=== PATIENT | male | born 1955 | race Caucasian/White ===

== ENCOUNTER 2023-01-24 08:46 | Outpatient (CLI) | payer BC ==
[2023-01-24 14:46] LABS: CHOL/HDL RATIO 4.4 (<5.0); CHOLESTEROL 193 mg/dL; HDL CHOLESTEROL 44 mg/dL; LDL CHOLESTEROL,CALCULATED 129 mg/dL; LDL/HDL RATIO 2.9 (<3.6); TRIGLYCERIDES 99 mg/dL (48-352); VLDL CHOLESTEROL 20 mg/dL
[2023-01-24 14:55] LABS: THYROID STIMULATING HORMONE 5.01 uIU/mL (0.34-5.60)
== END 2023-01-24 08:47 | disposition home or self-care (01) ==
LOC: LAB.S 08:46
PROVIDERS: ATTEND Naturopath
DX: E78.5 Hyperlipidemia, unspecified (principal); E03.9 Hypothyroidism, unspecified; R53.83 Other fatigue; I48.91 Unspecified atrial fibrillation
CPT/HCPCS: 36415; 80061; 83721; 84439; 84443; 84481; 84482

== ENCOUNTER 2023-10-24 14:18 | Outpatient (CLI) | payer BC | END 2023-10-24 23:59 | disposition home or self-care (01) | LOC: LAB.S 14:18 | PROVIDERS: ATTEND Emergency Medicine | DX: J06.9 Acute upper respiratory infection, unspecified (principal) | CPT/HCPCS: 87070 ==

== ENCOUNTER 2023-11-01 11:03 | Outpatient (CLI) | payer BC | END 2023-11-01 11:04 | disposition critical access hospital (66) | LOC: EMS 11:03 | DX: R07.89 Other chest pain (principal); I48.91 Unspecified atrial fibrillation | CPT/HCPCS: A0425; A0427 ==